=== PATIENT | male | born 1945 | race Caucasian/White ===

== ENCOUNTER 2020-04-05 15:34 | Emergency (ER) | payer MEDICARE, BC ==
[~2020-04-05] VITALS: Ht 177.8 cm; Wt 104.5 kg
[2020-04-05] MEDS ORDERED: GABAPENTIN TAB600 MG PO (15:52)
[2020-04-05] MEDS ORDERED: PERCOCET 325 MG1 TA2 PO (17:50)
[2020-04-05 17:58] VITALS: BP 155/88
== END 2020-04-05 18:05 | disposition home or self-care (01) ==
LOC: ED 15:34
DX: S83.91XA Sprain of unspecified site of right knee, initial encounter (principal); Z96.651 Presence of right artificial knee joint; X50.1XXA Overexertion from prolonged static or awkward postures, initial encounter; Y92.098 Other place in other non-institutional residence as the place of occurrence of the external cause
CPT/HCPCS: J1885